=== PATIENT | female | born 1955 | race Caucasian/White ===

== ENCOUNTER → 2017-08-10 | Outpatient (CLI) | payer BC ==
[~2017-08-10] MED LIST: ASPIRIN EC81 M1 PO; CALCIUM 600 +1 EAC1 PO; ESTRADIOL1 EAC1 TRANSDERM; HYDROXYCHLOROQ200 M1 PO; MOBIC15 MG PO; MULTIVITAMINS1 EAC7 PO; PREDNISONE 5 MG5 M1 PO
== END ==
LOC: RAD 11:14
DX: S69.82XA Other specified injuries of left wrist, hand and finger(s), initial encounter (principal); W18.39XA Other fall on same level, initial encounter; Y93.89 Activity, other specified; Y92.89 Other specified places as the place of occurrence of the external cause; Y99.8 Other external cause status

== ENCOUNTER → 2018-12-27 | Outpatient (CLI) | payer BC | LOC: MRI 13:37 | DX: M47.816 Spondylosis without myelopathy or radiculopathy, lumbar region (principal); M51.27 Other intervertebral disc displacement, lumbosacral region; M48.061 Spinal stenosis, lumbar region without neurogenic claudication ==

== ENCOUNTER → 2019-01-11 | Outpatient (CLI) | payer BC | LOC: ULTRA 10:54 | DX: N28.9 Disorder of kidney and ureter, unspecified (principal) ==

== ENCOUNTER → 2019-04-18 | Outpatient (CLI) | payer BC | LOC: RAD 08:32 | DX: Z12.31 Encounter for screening mammogram for malignant neoplasm of breast (principal) ==

== ENCOUNTER → 2019-04-24 | Outpatient (CLI) | payer BC | LOC: ULTRA 09:37 | DX: N63.20 Unspecified lump in the left breast, unspecified quadrant (principal) ==

== ENCOUNTER → 2020-05-05 | Outpatient (CLI) | payer BC | LOC: BC 07:51 | PROVIDERS: ATTEND Obstetrics & Gynecology | DX: Z12.31 Encounter for screening mammogram for malignant neoplasm of breast (principal) ==

== ENCOUNTER → 2021-04-26 | Outpatient (CLI) | payer OTHER | LOC: BC 09:02 | PROVIDERS: ATTEND Family Medicine | DX: Z12.31 Encounter for screening mammogram for malignant neoplasm of breast (principal); N64.89 Other specified disorders of breast ==